=== PATIENT | female | born 1945 | race Caucasian/White ===

== ENCOUNTER 2019-07-31 05:22 | Emergency (ER) | payer OTHER, MEDICAID ==
[2019-07-31] MEDS ORDERED: SODIUM CHLORIDE 0.9% (FLUSH) 10 ML SYG IV PRN (05:38)
[2019-07-31] MEDS: IPRATROPIUM/ALBUTEROL 3 ML VIAL INH ONE (05:50)
--- NOTE | 2019-07-31 06:03 | ED.PDOC ---
History of Present Illness - General Source: patient, RN notes reviewed, Vital Signs reviewed - History of Present Illness Comments: 74 yo female with PMH of CHF, CKD, dementia, HTN, CAD, and COPD presents from OR for 1 week h/o nonproductive cough, congestion and feeling short of breath. She is not on oxygen at OR. Denies fever, chills, CP or leg edema. States cough is worse with lying flat and exertion. Has not seen her doctor or taken any medications for these symptoms. Per OR records, she takes Lasix 20 mg daily prn edema. - General Chief Complaint: Respiratory Problem Stated Complaint: trouble breathing, cough, congestion Time Seen by Provider: 07/31/19 05:34 - History of Present Illness Allergies/Adverse Reactions: Allergies Latex Allergy (Verified 07/31/19 05:47) Pantoprazole [From Protonix] Allergy (Verified 07/31/19 05:47) Penicillins Allergy (Verified 07/31/19 05:42) Pneumococcal Vaccines Allergy (Verified 07/31/19 05:47) Sulfa Antibiotics Allergy (Verified 07/31/19 05:47) Milk Allergy (Uncoded 07/31/19 05:47) Home Medications: Ambulatory Orders Albuterol Inhaler [Ventolin Hfa Inhaler] 2 puff INH Q6H PRN #1 inh 07/31/19 Albuterol Sulfate [Ventolin Hfa] 2 puff INH Q6H PRN 07/31/19 Aspirin [Aspirin Adult Low Dose] 81 mg PO DAILY 07/31/19 Azithromycin [Zithromax Z-Thomas] 250 mg PO DAILY #6 tab 07/31/19 Benzonatate 100 mg PO Q8H PRN 07/31/19 Adajjxofgx-Oaknatxqxltzu-Snqfk [Butalbital/Acetaminophen/] 1 cap PO Q12H PRN 07/31/19 Carvedilol 6.25 mg PO BID 07/31/19 Clopidogrel Bisulfate 75 mg PO DAILY 07/31/19 Cranberry (Vaccinium Macrocarp [Cranberry] 400 mg PO DAILY 07/31/19 Duloxetine HCl 60 mg PO BEDTIME 07/31/19 Fluticasone Prop 0.05% Nasal [Flonase Nasal Michael] 50 mcg ALTNOS DAILY 07/31/19 Furosemide 20 mg PO DAILY 07/31/19 Ibuprofen 800 mg PO Q6H PRN 07/31/19 Insulin Detemir [Levemir] 50 unit SUBCU BEDTIME 07/31/19 Insulin Lispro [HumaLOG] 0 unit SUBCU ACHS PRN 07/31/19 Insulin Lispro [HumaLOG] 7 unit SUBCU AC 07/31/19 Lactobacillus [Acidophilus Lactobacilli] 1 cap PO DAILY 07/31/19 Levothyroxine Sodium 75 mcg PO DAILY 07/31/19 Mesalamine [Lialda] 1.2 gm PO TID 07/31/19 Montelukast [Singulair] 10 mg PO BEDTIME 07/31/19 Nitroglycerin Patch 0.4 mg/Hr [Nitro-Dur PATCH 0.4 mg/hour] 0.4 mg TOP QD 07/31/19 Ondansetron [Ondansetron Odt] 4 mg PO DAILY 07/31/19 Oxybutynin Chloride [Oxybutynin Chloride ER] 5 mg PO DAILY 07/31/19 Polyethylene Glycol 3350 [Miralax] 17 gm PO DAILY 07/31/19 Prednisone 60 mg PO DAILY 5 Days #15 tab 07/31/19 Pregabalin [Lyrica] 300 mg PO BID 07/31/19 Promethazine HCl 25 mg PO Q6H PRN 07/31/19 Ranitidine HCl 150 mg PO DAILY 07/31/19 Ropinirole Hydrochloride [Ropinirole HCl] 0.25 mg PO TID 07/31/19 Sennosides [Senna Laxative] 8.6 mg PO BID PRN 07/31/19 Simvastatin 10 mg PO BEDTIME 07/31/19 Topiramate 100 mg PO BID 07/31/19 Past Medical History (General) - Patient Medical History Hx Stroke: Yes Hx of COPD: Yes Hx Congestive Heart Failure: Yes Hx Thyroid Disease: Yes Hx Diabetes: Yes Hx Gastroesophageal Reflux: Yes Surgical History: appendectomy, cholecystectomy, Hysterectomy - Vaccination History Hx Tetanus, Diphtheria Vaccination: No Hx Influenza Vaccination: Yes Hx Pneumococcal Vaccination: No - allergic - Social History Hx Tobacco Use: No Hx Alcohol Use: No - Activities of Daily Living Alf/Assisted Living (if applicable):: [facility] Family Medical History - Family History Mother Family History: Unknown Hx Family Cancer: Yes Physical Exam - Physical Exam General Appearance: Alert, Anxious, No apparent distress, Well Groomed, Other - Nontoxic appearing ENT Exam: other - TTP bilateral maxillary sinuses. Oropharynx has mild erythema, no edema or exudates Neck: non-tender, full range of motion, supple, normal inspection, trachea midline Respiratory: chest non-tender - Good air movement with bibasilar crackles and occasional wheezing, no accessory muscle use Cardiovascular/Chest: normal peripheral pulses, regular rate, rhythm, no JVD, other - No pitting edema Gastrointestinal/Abdominal: non tender, soft, other - ND, no guarding Extremity: normal range of motion, non-tender, normal inspection, no pedal edema, no calf tenderness Neurologic: no motor/sensory deficits, alert, other - anxious Skin Exam: normal color, warm/dry Progress - Progress Progress: 07/31/19 06:23 EKG NSR, rate 62, normal intervals, nonspecific T wave abnormality 07/31/19 07:00 Pt presents with 1 week h/o cough and dyspnea. VSS. No hypoxia or respiratory distress. Has wheezes on exam that have improved with neb. CXR shows atelectasis vs early pneumonia. Mild leukocytosis, afebrile. Other labs unremarkable. Flu negative. Pt feels comfortable going home on treatment for COPD exacerbation and will f/u with pcp in 1-2 days for recheck. 07/31/19 07:04 - Results/Orders Results/Orders: Chest single view on 07/31/2019 CLINICAL INDICATION: Cough COMPARISON: 01/26/2012 FINDINGS: There is elevation of the right hemidiaphragm. There are mild bibasilar opacities consistent with atelectasis and/or pneumonia. Vascular calcification is noted in the aorta. Heart is within normal limits for size. Lungs are otherwise clear. IMPRESSION: Mild bibasilar opacities consistent with atelectasis and/or pneumonia. Departure - Departure Activity: increase activity as tolerated - Departure Clinical Impression: COPD exacerbation, Essential hypertension Dyspnea Qualifiers: Dyspnea type: shortness of breath Qualified Code(s): R06.02 - Shortness of breath Disposition: Discharge to Home or Self Care Condition: Good Departure Forms: ED Discharge - Pt. Copy, Patient Portal Self Enrollment Instructions: COPD Including Emphysema (DC) Referrals: SANAZ KERR [Primary Care Provider] - 1-2 Days Prescriptions: Albuterol Inhaler [Ventolin Hfa Inhaler] 2 puff INH Q6H PRN #1 inh PRN Reason: Wheezing Azithromycin [Zithromax Z-Thomas] 250 mg PO DAILY #6 tab Prednisone 60 mg PO DAILY 5 Days #15 tab Home Medications: Ambulatory Orders Albuterol Inhaler [Ventolin Hfa Inhaler] 2 puff INH Q6H PRN #1 inh 07/31/19 Albuterol Sulfate [Ventolin Hfa] 2 puff INH Q6H PRN 07/31/19 Aspirin [Aspirin Adult Low Dose] 81 mg PO DAILY 07/31/19 Azithromycin [Zithromax Z-Thomas] 250 mg PO DAILY #6 tab 07/31/19 Benzonatate 100 mg PO Q8H PRN 07/31/19 Rcgaxmgwxv-Lhyhrrnjxmxjz-Jfjom [Butalbital/Acetaminophen/] 1 cap PO Q12H PRN 07/31/19 Carvedilol 6.25 mg PO BID 07/31/19 Clopidogrel Bisulfate 75 mg PO DAILY 07/31/19 Cranberry (Vaccinium Macrocarp [Cranberry] 400 mg PO DAILY 07/31/19 Duloxetine HCl 60 mg PO BEDTIME 07/31/19 Fluticasone Prop 0.05% Nasal [Flonase Nasal Michael] 50 mcg ALTNOS DAILY 07/31/19 Furosemide 20 mg PO DAILY 07/31/19 Ibuprofen 800 mg PO Q6H PRN 07/31/19 Insulin Detemir [Levemir] 50 unit SUBCU BEDTIME 07/31/19 Insulin Lispro [HumaLOG] 0 unit SUBCU ACHS PRN 07/31/19 Insulin Lispro [HumaLOG] 7 unit SUBCU AC 07/31/19 Lactobacillus [Acidophilus Lactobacilli] 1 cap PO DAILY 07/31/19 Levothyroxine Sodium 75 mcg PO DAILY 07/31/19 Mesalamine [Lialda] 1.2 gm PO TID 07/31/19 Montelukast [Singulair] 10 mg PO BEDTIME 07/31/19 Nitroglycerin Patch 0.4 mg/Hr [Nitro-Dur PATCH 0.4 mg/hour] 0.4 mg TOP QD 07/31/19 Ondansetron [Ondansetron Odt] 4 mg PO DAILY 07/31/19 Oxybutynin Chloride [Oxybutynin Chloride ER] 5 mg PO DAILY 07/31/19 Polyethylene Glycol 3350 [Miralax] 17 gm PO DAILY 07/31/19 Prednisone 60 mg PO DAILY 5 Days #15 tab 07/31/19 Pregabalin [Lyrica] 300 mg PO BID 07/31/19 Promethazine HCl 25 mg PO Q6H PRN 07/31/19 Ranitidine HCl 150 mg PO DAILY 07/31/19 Ropinirole Hydrochloride [Ropinirole HCl] 0.25 mg PO TID 07/31/19 Sennosides [Senna Laxative] 8.6 mg PO BID PRN 07/31/19 Simvastatin 10 mg PO BEDTIME 07/31/19 Topiramate 100 mg PO BID 07/31/19 Addendum entered and electronically signed by Rohan Jones MD 08/10/19 18:15: ED Addendum - ED Addendum Addendum: Review of systems: Reports cough, congestion, SOB Denies fever, CP, body aches, easy bruising, headache, abdominal pain, nausea, vomiting, constipation Departure - Departure Clinical Impression: COPD exacerbation, Essential hypertension Dyspnea Qualifiers: Dyspnea type: shortness of breath Qualified Code(s): R06.02 - Shortness of breath Disposition: Discharge to Home or Self Care Condition: Good Departure Forms: ED Discharge - Pt. Copy, Patient Portal Self Enrollment Instructions: COPD Including Emphysema (DC) Referrals: SANAZ KERR [Primary Care Provider] - 1-2 Days Prescriptions: Albuterol Inhaler [Ventolin Hfa Inhaler] 2 puff INH Q6H PRN #1 inh PRN Reason: Wheezing Azithromycin [Zithromax Z-Thomas] 250 mg PO DAILY #6 tab Prednisone 60 mg PO DAILY 5 Days #15 tab Home Medications: Ambulatory Orders Albuterol Inhaler [Ventolin Hfa Inhaler] 2 puff INH Q6H PRN #1 inh 07/31/19 Albuterol Sulfate [Ventolin Hfa] 2 puff INH Q6H PRN 07/31/19 Aspirin [Aspirin Adult Low Dose] 81 mg PO DAILY 07/31/19 Azithromycin [Zithromax Z-Thomas] 250 mg PO DAILY #6 tab 07/31/19 Benzonatate 100 mg PO Q8H PRN 07/31/19 Plhogenmeq-Kilzrhcttsgkt-Ayhrp [Butalbital/Acetaminophen/] 1 cap PO Q12H PRN 07/31/19 Carvedilol 6.25 mg PO BID 07/31/19 Clopidogrel Bisulfate 75 mg PO DAILY 07/31/19 Cranberry (Vaccinium Macrocarp [Cranberry] 400 mg PO DAILY 07/31/19 Duloxetine HCl 60 mg PO BEDTIME 07/31/19 Fluticasone Prop 0.05% Nasal [Flonase Nasal Michael] 50 mcg ALTNOS DAILY 07/31/19 Furosemide 20 mg PO DAILY 07/31/19 Ibuprofen 800 mg PO Q6H PRN 07/31/19 Insulin Detemir [Levemir] 50 unit SUBCU BEDTIME 07/31/19 Insulin Lispro [HumaLOG] 0 unit SUBCU ACHS PRN 07/31/19 Insulin Lispro [HumaLOG] 7 unit SUBCU AC 07/31/19 Lactobacillus [Acidophilus Lactobacilli] 1 cap PO DAILY 07/31/19 Levothyroxine Sodium 75 mcg PO DAILY 07/31/19 Mesalamine [Lialda] 1.2 gm PO TID 07/31/19 Montelukast [Singulair] 10 mg PO BEDTIME 07/31/19 Nitroglycerin Patch 0.4 mg/Hr [Nitro-Dur PATCH 0.4 mg/hour] 0.4 mg TOP QD Ondansetron [Ondansetron Odt] 4 mg PO DAILY 07/31/19 Oxybutynin Chloride [Oxybutynin Chloride ER] 5 mg PO DAILY 07/31/19 Polyethylene Glycol 3350 [Miralax] 17 gm PO DAILY 07/31/19 Prednisone 60 mg PO DAILY 5 Days #15 tab 07/31/19 Pregabalin [Lyrica] 300 mg PO BID 07/31/19 Promethazine HCl 25 mg PO Q6H PRN 07/31/19 Ranitidine HCl 150 mg PO DAILY 07/31/19 Ropinirole Hydrochloride [Ropinirole HCl] 0.25 mg PO TID 07/31/19 Sennosides [Senna Laxative] 8.6 mg PO BID PRN 07/31/19 Simvastatin 10 mg PO BEDTIME 07/31/19 Topiramate 100 mg PO BID 07/31/19
--- NOTE | 2019-07-31 06:51 | RAD ---
Chest single view on 07/31/2019 CLINICAL INDICATION: Cough COMPARISON: 01/26/2012 FINDINGS: There is elevation of the right hemidiaphragm. There are mild bibasilar opacities consistent with atelectasis and/or pneumonia. Vascular calcification is noted in the aorta. Heart is within normal limits for size. Lungs are otherwise clear. IMPRESSION: Mild bibasilar opacities consistent with atelectasis and/or pneumonia. Electronically signed by: Ryan Galvez 07/31/2019 6:49 AM CDT
[2019-07-31] MEDS: AZITHROMYCIN 250 MG TAB PO ONE (07:12)
[2019-07-31] MEDS: AZITHROMYCIN IV 500 MG in SODIUM CHLORIDE 0.9% 250ML 250 ML IVPB ONE (07:23)
[2019-07-31 07:50] VITALS: BP 132/82; TEMP 97.1; O2SAT 96
== END 2019-07-31 08:00 | disposition home or self-care (01) ==
LOC: ER 05:22
DX: J44.1 Chronic obstructive pulmonary disease with (acute) exacerbation (principal); I13.0 Hypertensive heart and chronic kidney disease with heart failure and stage 1 through stage 4 chronic kidney disease, or unspecified chronic kidney disease; I50.9 Heart failure, unspecified; N18.9 Chronic kidney disease, unspecified; E11.22 Type 2 diabetes mellitus with diabetic chronic kidney disease; I25.10 Atherosclerotic heart disease of native coronary artery without angina pectoris; E07.9 Disorder of thyroid, unspecified; K21.9 Gastro-esophageal reflux disease without esophagitis; F03.90 Unspecified dementia, unspecified severity, without behavioral disturbance, psychotic disturbance, mood disturbance, and anxiety; Z86.73 Personal history of transient ischemic attack (TIA), and cerebral infarction without residual deficits; Z79.899 Other long term (current) drug therapy; Z79.82 Long term (current) use of aspirin; Z79.4 Long term (current) use of insulin; Z91.040 Latex allergy status; Z88.8 Allergy status to other drugs, medicaments and biological substances; Z88.0 Allergy status to penicillin; Z88.2 Allergy status to sulfonamides; Z88.7 Allergy status to serum and vaccine
CPT/HCPCS: 36415; 71045; 80053; 83605; 83880; 84484; 85025; 87502; 93005; 94640; J7620; Q0144

== ENCOUNTER 2019-09-21 16:52 | Observation (INO) | payer MEDICARE, MEDICAID ==
--- NOTE | 2019-09-21 16:54 | HP ---
SUPERVISING PHYSICIAN: Meng Hudson MD CHIEF COMPLAINT: Coughing and congestion. HISTORY OF PRESENT ILLNESS: This is a 74-year-old female the patient who is a resident of [facility]. She has had a cough and upper respiratory infection symptoms over the last week. It progressed to the point that she came to Dr. Elizabeth's office today. She is actually a fairly new patient with Dr. Elizabeth. At the doctor's office, a chest x-ray was done and showed large heart without failure and medial right basilar infiltrate or partial volume loss. Her white count was 14,500 with hemoglobin 13.2 and hematocrit 40. She was somewhat tachypneic and there was a question of whether she had an elevated temperature or not. She has a significant cardiac history as well as chronic obstructive pulmonary disease. Given her elevated white count as well as her elevated heart rate of 95 and findings on x-ray, Dr. Elizabeth called for a direct admission. PAST MEDICAL HISTORY: 1. Congestive heart failure of unknown etiology. There is no current echocardiogram to review. 2. Diabetes mellitus, type 2. 3. Neuropathy due to her diabetes. 4. Hyperlipidemia. 5. Hypertension. 6. Chronic obstructive pulmonary disease. 7. Gastroesophageal reflux disease. 8. Ulcerative colitis. 9. Dementia. 10. Depression. PAST SURGICAL HISTORY: 1. Abdominal surgery for polyps. 2. Tonsillectomy. 3. Cholecystectomy. 4. Hysterectomy. 5. Lumpectomy of the posterior tongue. OUTPATIENT MEDICATIONS: Per the EMR and awaiting verification. ALLERGIES: LATEX, PENICILLIN, PNEUMOCOCCAL VACCINE, SULFA ANTIBIOTICS. SOCIAL HISTORY: She lives at [facility]. She denies any tobacco, ETOH or illicit drug use. REVIEW OF SYSTEMS: GENERAL: Positive for fever and fatigue. Negative for weight changes. HEENT: Negative for sinus symptoms, ear pain, vision changes or sore throat. RESPIRATORY: As per history of present illness. CARDIAC: Negative for chest pain, palpitations or tachycardia. GASTROINTESTINAL: Negative for nausea, vomiting, diarrhea, constipation. GENITOURINARY: Negative for hematuria, dysuria or polyuria. SKIN: Negative for lesions or rashes. NEUROLOGIC: Negative for headache, dizziness or seizures. PHYSICAL EXAMINATION: VITAL SIGNS: Temperature 98.4. Heart rate 85. Blood pressure 156/71. Respiratory rate 18. O2 saturation 94% on room air. GENERAL: This is a 74-year-old obese female who is sitting up in her hospital bed. She is in mild respiratory distress. HEENT: Normocephalic, atraumatic. Pupils are equal and reactive. Oropharynx is clear. NECK: Supple without mass. RESPIRATORY: Diminished at the bases with a few scattered rhonchi. She becomes slightly tachypneic at times. CHEST: There is equal rise and fall of the chest with inspiration and expiration. CARDIOVASCULAR: Regular rate and rhythm. GASTROINTESTINAL: Abdomen is soft, nondistended, nontender. Bowel sounds are positive. EXTREMITIES: No cyanosis, clubbing or edema. NEUROLOGIC: Awake, alert and oriented times three. Cranial nerves II-XII are grossly intact. LABORATORY: Coagulation studies are within normal limits. Her metabolic panel is within normal limits. Glucose 210. Blood cultures pending. All other labs and films are per the history of present illness. IMPRESSION: 1. Sepsis related to right lower lobe pneumonia with admitting heart rate of 95 and WBC of 14,500. 2. Congestive heart failure of unknown etiology with no evidence of exacerbation. 3. Diabetes mellitus, type 2. 4. Hypertension. 5. Hyperlipidemia. 6. Hypothyroidism on supplementation. 7. Chronic obstructive pulmonary disease with questionable exacerbation. 8. Gastroesophageal reflux disease. PLAN: The patient has been admitted to the hospital. I have started the pneumonia guidelines. I will continue her on Rocephin. I will order Rocephin and azithromycin. At this point, I do not think she needs steroids, but we will reevaluate that tomorrow. Labs have been ordered for tomorrow. I will recheck her chest x-ray tomorrow. We will follow her cultures as they become available. I have also ordered a sputum culture. Medications will be restarted when they are verified. I have ordered aggressive pulmonary hygiene including scheduled and p.r.n. nebulizers. Lovenox has been ordered for DVT prophylaxis and proton pump inhibitor for ulcer prophylaxis. At some point, she will need an echocardiogram as we have no current echocardiogram to review. We will continue to monitor the patient closely and follow as needed. [facility][id number] [facility]
[2019-09-21] MEDS ORDERED: ALBUTEROL SULFATE 2.5 MG/3 ML VIAL NEB PRN (16:55)
[2019-09-21] MEDS ORDERED: ACETAMINOPHEN 325 MG TAB PO PRN (16:55)
[2019-09-21] MEDS ORDERED: SODIUM CHLORIDE 0.9% 1000ML 1,000 ML IVS PRN (16:55)
[2019-09-21] MEDS ORDERED: SODIUM CHLORIDE 0.9% (FLUSH) 10 ML SYG IV PRN (16:55)
[2019-09-21] MEDS ORDERED: IV SET AND CAP CHANGE INJ INJ SCH (17:00)
[2019-09-21] MEDS ORDERED: GLUCAGON INJ 1 MG VIAL SUBCU PRN (17:02)
[2019-09-21] MEDS ORDERED: DEXTROSE 50% 25 GM/50 ML SYG IV PRN (17:02)
[2019-09-21] MEDS ORDERED: ONDANSETRON INJ 4 MG/2 ML VIAL IV PRN (17:07)
[2019-09-21] MEDS: IPRATROPIUM/ALBUTEROL 3 ML VIAL NEB SCH ×2 (17:59→21:32)
[2019-09-21] MEDS ORDERED: SODIUM CHL 0.9% 50ML MIN-BAG+ 50 ML IVPB ONE (18:58)
[2019-09-21] MEDS ORDERED: SODIUM CHLORIDE 0.9% 250ML 250 ML ONE (18:58)
[2019-09-21] MEDS ORDERED: cefTRIAXone SODIUM 1 GM VIAL ONE (18:59)
[2019-09-21] MEDS ORDERED: AZITHROMYCIN IV 500 MG VIAL IVPB ONE (18:59)
[2019-09-21] MEDS: cefTRIAXone SODIUM 1 GM in SODIUM CHL 0.9% 50ML MIN-BAG+ 50 ML IVPB SCH (19:36)
[2019-09-21] MEDS: AZITHROMYCIN IV 500 MG in SODIUM CHLORIDE 0.9% 250ML 250 ML IVPB SCH (20:33)
[2019-09-21] MEDS: ENOXAPARIN SODIUM 40 MG/0.4 ML SYG SUBCU SCH (20:33)
[2019-09-21] MEDS: SODIUM CHLORIDE 0.9% (FLUSH) 10 ML SYG IV SCH (20:44)
[2019-09-21] MEDS: INSULIN LISPRO 100 UNITS/ML PEN SUBCU SCH (21:17)
[2019-09-21] MEDS ORDERED: SODIUM CHLORIDE 0.9% 1000ML 1,000 ML ONE (21:25)
[2019-09-21] MEDS ORDERED: ACETAMINOPHEN-CAFF-BUTALBITAL 1 EA TAB PO PRN (23:47)
--- NOTE | 2019-09-22 07:36 | RAD ---
EXAM DESCRIPTION: Chest,2 Views CLINICAL HISTORY: Pneumonia COMPARISON: July 31, 2019 TECHNIQUE: PA/lateral FINDINGS: Two views of the chest demonstrate tortuous calcified aorta and mild chronic elevation of the right hemidiaphragm. Mild basilar fibrotic lung disease is evident. Dense lobar segmental consolidation is not apparent. Slightly crowded markings in the medial right lung base are likely on the basis of the elevated diaphragm. Minimal basilar bronchopneumonia cannot be excluded. Dense lobar consolidation is not apparent. Heart size is upper normal with normal vascularity. IMPRESSION: Mild basilar fibrotic lung disease and slightly crowded are prominent markings in the medial right lung base suggesting mild scarring or compressive atelectasis or minimal bronchopneumonia. Calcified tortuous aorta with upper normal heart and normal vascularity. No dense consolidation seen. Electronically signed by: Meng Pace MD 09/22/2019 7:34 AM [employer]
[2019-09-22] MEDS: INSULIN LISPRO 100 UNITS/ML PEN SUBCU SCH ×5 (07:49→20:56)
[2019-09-22] MEDS ORDERED: BENZONATATE PERLES 100 MG CAP PO PRN (08:24)
[2019-09-22] MEDS ORDERED: BENZOCAINE-MENTH LOZ (CEPACOL) 1 EA LOZ MT PRN (08:24)
[2019-09-22] MEDS ORDERED: IPRATROPIUM/ALBUTEROL 3 ML VIAL NEB ONE (08:37)
[2019-09-22] MEDS: IPRATROPIUM/ALBUTEROL 3 ML VIAL NEB SCH ×4 (08:55→20:57)
[2019-09-22] MEDS ORDERED: DEXTROSE 10% 500ML IVPB PRN (09:00)
[2019-09-22] MEDS ORDERED: tiZANidine 4 MG TAB PO PRN (09:16)
[2019-09-22] MEDS ORDERED: FUROSEMIDE INJ 20 MG/2 ML VIAL IV ONE (09:20)
[2019-09-22] MEDS ORDERED: NON-FORMULARY MEDICATION 1 EA MIS (Pregabalin [Lyrica] 300 MG) PO SCH (09:30)
[2019-09-22] MEDS: guaiFENesin ER TAB 600 MG TAB PO SCH ×2 (09:39→20:34)
[2019-09-22] MEDS ORDERED: PREGABALIN 100 MG CAP ONE (09:39)
[2019-09-22] MEDS: CLOPIDOGREL 75 MG TAB PO SCH (09:40)
[2019-09-22] MEDS: CARVEDILOL 3.125 MG TAB PO SCH ×2 (09:40→20:35)
[2019-09-22] MEDS: SODIUM CHLORIDE 0.9% (FLUSH) 10 ML SYG IV SCH ×2 (09:41→20:35)
[2019-09-22] MEDS: NITROGLYCERIN 0.4 MG/HR PATCH TOP SCH (09:41)
[2019-09-22] MEDS: POLYETHYLENE GLYCOL 3350 17 GM PCKT PO SCH (09:45)
[2019-09-22] MEDS ORDERED: methylPREDNISolone SODIUM SUC 125 MG/2 ML VIAL IV ONE (09:45)
--- NOTE | 2019-09-22 10:29 | PN ---
SUPERVISING PHYSICIAN: Meng Hudson MD DATE: 09/22/19 SUBJECTIVE: The patient is lying in bed. She still complains of some shortness of breath and coughing. She is having a difficult time bringing any phlegm up. She also said she had some diarrhea although it was reported from the nurse that it was just a soft stool. Otherwise, she denies chest pain, nausea or vomiting. OBJECTIVE: VITAL SIGNS: Temperature 98.3. Heart rate 62. Blood pressure 129/67. Respiratory rate 20. O2 saturation 92% on 2 liters nasal cannula. RESPIRATORY: Scattered rhonchi throughout and somewhat diminished at the bases. She does get slightly tachypneic with talking. She does have some scattered expiratory wheezes in the right lower lung javier. CARDIAC: Regular rate and rhythm. GASTROINTESTINAL: Abdomen is soft, nondistended, nontender. Bowel sounds are positive. NEUROLOGIC: Awake, alert and oriented times three. LABORATORY: WBCs have improved to 13,300 with hemoglobin 11.3, hematocrit 34.9. Electrolytes are basically within normal limits as well as liver function tests. Blood sugar 254. Blood cultures pending. Chest x-ray shows mild basilar fibrotic lung disease and slightly crowded. There are prominent markings in the medial right lung base suggesting mild scarring or compressive atelectasis or minimal bronchopneumonia. Calcified tortuous aorta with upper normal heart and normal vascularity. All other labs and films have been reviewed via the EMR. ASSESSMENT: 1. Sepsis related to right lower lobe pneumonia with admitting heart rate of 95 and WBC of 14,500. 2. Congestive heart failure of unknown etiology with no evidence of exacerbation. 3. Diabetes mellitus, type 2. 4. Hypertension. 5. Hyperlipidemia. 6. Hypothyroidism on supplementation. 7. Chronic obstructive pulmonary disease with questionable exacerbation. 8. Gastroesophageal reflux disease. PLAN: We will continue present supportive care. I will hold on lab and x-ray for tomorrow. Her IV fluids have been stopped. She will receive one dose of Lasix today. Her home medications have been restarted and I have put her on Tessalon Perles p.r.n. as well as Mucinex scheduled. I have given her one dose of Solu-Medrol and her blood sugars will most likely go up. We have sliding scale insulin coverage for that. Her home long-acting insulin has been restarted. Continue to encourage good pulmonary hygiene. Hopefully we can discharge her in the next one to days. We will continue to monitor the patient closely and follow as needed. [facility][id number] [facility]
[2019-09-22] MEDS ORDERED: methylPREDNISolone SODIUM SUC 125 MG/2 ML VIAL ONE (11:54)
[2019-09-22] MEDS: LACTOBACILLUS 1 TAB PO SCH ×2 (16:02→20:36)
[2019-09-22] MEDS: MESALAMINE 1.2 GM PO SCH ×2 (17:02→20:41)
[2019-09-22] MEDS ORDERED: SODIUM CHLORIDE 0.9% 250ML 250 ML ONE (17:04)
[2019-09-22] MEDS ORDERED: SODIUM CHL 0.9% 50ML MIN-BAG+ 50 ML IVPB ONE (17:05)
[2019-09-22] MEDS ORDERED: cefTRIAXone SODIUM 1 GM VIAL ONE (17:05)
[2019-09-22] MEDS ORDERED: AZITHROMYCIN IV 500 MG VIAL IVPB ONE (17:05)
[2019-09-22] MEDS: cefTRIAXone SODIUM 1 GM in SODIUM CHL 0.9% 50ML MIN-BAG+ 50 ML IVPB SCH (17:09)
[2019-09-22] MEDS: AZITHROMYCIN IV 500 MG in SODIUM CHLORIDE 0.9% 250ML 250 ML IVPB SCH (17:59)
[2019-09-22] MEDS: PREGABALIN 100 MG CAP PO SCH (20:34)
[2019-09-22] MEDS: TOPIRAMATE 25 MG TAB PO SCH (20:35)
[2019-09-22] MEDS: SENNOSIDES 8.6 MG TAB PO SCH (20:35)
[2019-09-22] MEDS: ENOXAPARIN SODIUM 40 MG/0.4 ML SYG SUBCU SCH (20:36)
[2019-09-22] MEDS ORDERED: DULoxetine HCL 30 MG CAP PO SCH (21:00)
[2019-09-22] MEDS ORDERED: MONTELUKAST 10 MG TAB PO SCH (21:00)
[2019-09-22] MEDS ORDERED: SIMVASTATIN 10 MG TAB PO SCH (21:00)
[2019-09-22] MEDS ORDERED: INSULIN DETEMIR 100 UNITS/ML PEN SUBCU SCH (21:00)
[2019-09-23] MEDS ORDERED: LEVOTHYROXINE SODIUM 0.075 MG TAB ONE (06:50)
[2019-09-23] MEDS ORDERED: OXYBUTYNIN CL 5 MG TAB ONE (06:50)
[2019-09-23] MEDS ORDERED: ASPIRIN (ENTERIC COATED) 81 MG TAB PO ONE (06:50)
[2019-09-23] MEDS: INSULIN LISPRO 100 UNITS/ML PEN SUBCU SCH ×2 (07:29→12:07)
[2019-09-23] MEDS: IPRATROPIUM/ALBUTEROL 3 ML VIAL NEB SCH (07:54)
[2019-09-23] MEDS ORDERED: ASPIRIN (ENTERIC COATED) 81 MG TAB PO SCH (09:00)
[2019-09-23] MEDS ORDERED: OXYBUTYNIN CL 5 MG TAB PO SCH (09:00)
[2019-09-23] MEDS: PREGABALIN 100 MG CAP PO SCH (09:18)
[2019-09-23] MEDS: TOPIRAMATE 25 MG TAB PO SCH (09:19)
[2019-09-23] MEDS: LACTOBACILLUS 1 TAB PO SCH (09:20)
[2019-09-23] MEDS: guaiFENesin ER TAB 600 MG TAB PO SCH (09:20)
[2019-09-23] MEDS: SENNOSIDES 8.6 MG TAB PO SCH (09:20)
[2019-09-23] MEDS: CARVEDILOL 3.125 MG TAB PO SCH (09:21)
[2019-09-23] MEDS: SODIUM CHLORIDE 0.9% (FLUSH) 10 ML SYG IV SCH (09:22)
[2019-09-23] MEDS: CLOPIDOGREL 75 MG TAB PO SCH (09:22)
[2019-09-23] MEDS: POLYETHYLENE GLYCOL 3350 17 GM PCKT PO SCH (09:23)
[2019-09-23] MEDS: NITROGLYCERIN 0.4 MG/HR PATCH TOP SCH (09:29)
[2019-09-23] MEDS: MESALAMINE 1.2 GM PO SCH (09:29)
[2019-09-23] MEDS ORDERED: LEVOTHYROXINE SODIUM 0.075 MG TAB PO SCH (09:45)
[2019-09-23 10:13] VITALS: BP 132/81; TEMP 98; O2SAT 96
--- NOTE | 2019-09-24 11:52 | DS ---
SUPERVISING PHYSICIAN: Meng Hudson MD DISCHARGE DIAGNOSES: 1. Sepsis related to right lower lobe pneumonia with admitting heart rate of 95 and WBC of 14,500. 2. Congestive heart failure of unknown etiology with no evidence of exacerbation. 3. Diabetes mellitus, type 2. 4. Hypertension. 5. Hyperlipidemia. 6. Hypothyroidism on supplementation. 7. Chronic obstructive pulmonary disease with questionable exacerbation. 8. Gastroesophageal reflux disease. HISTORY OF PRESENT ILLNESS: This is a 74-year-old female patient who is a resident of [facility]. She has had a cough and upper respiratory infection symptoms that have been going on for over a week. It progressively worsened to the point that she went to see her primary care physician, Dr. Elizabeth. She is actually a new patient to him. At his office, a chest x-ray was done and showed enlarged heart without failure and medial right basilar infiltrate or partial volume loss. Her white count was 14,500 with hemoglobin 13.2 and hematocrit 40. She was somewhat tachypneic and there was a question of whether she had an elevated temperature or not. She has a significant cardiac history as well as chronic obstructive pulmonary disease and her elevated white count as well as her elevated heart rate and findings on x-ray, Dr. Elizabeth called for a direct admission. HOSPITAL COURSE: She was placed in observation in the hospital. Pneumonia guidelines were started. She was also put on Rocephin and azithromycin as well as antibiotics. Initially, she was not given any steroids but yesterday she was actually given one dose. Her labs were followed and a sputum culture was ordered as well as blood cultures, aggressive pulmonary hygiene including scheduled p.r.n. breathing treatments were also ordered. She got Lovenox for DVT prophylaxis. She did have a dry hacking cough and was given Mucinex, also Tessalon Perles. Her coughing improved as well as her other upper respiratory symptoms. Her medications were restarted. She initially reported some diarrhea but the nurses reported the stool was not liquid as it was very formed and she only had two of those. Her long-acting insulin was restarted as well as blood sugar checks a.c. and h.s. with NovoLog insulin coverage. Today, her vital signs are stable. Her upper respiratory symptoms are mostly resolved and she will return to the [facility] today with close followup with Dr. Elizabeth next week. LABORATORY: Her initial white count at the clinic was 14,500 and went down to 13,300 and it was up to 16,500 today but she did have one dose of steroids. Her hemoglobin and hematocrit were stable at 12.2 and 36.9. Her blood sugars ran between 150 and 325. Her metabolic panel was basically within normal limits. She had stool for occult blood that was negative. Preliminary blood cultures showed no growth after 24 hours. Her C. difficile was negative for both toxin and antigen and fecal WBCs were present. Her followup chest x-ray showed mild basilar fibrotic lung disease and slightly crowded are the prominent markings in the medial right lung base suggesting mild scarring or compression atelectasis or minimal bronchopneumonia, calcified tortuous aorta with upper normal heat and normal vascularity. No dense consolidation seen. All other labs and films have been reviewed via the EMR. DISCHARGE PLAN: The patient will be discharged to [facility] in stable condition. She will continue her previous home medications plus oral azithromycin and oral Cefdinir. I have also given her 14 additional days of Mucinex in addition to the Mucinex she takes at the [facility]. She is to resume her previous her diet, increase her activity as tolerated as well as have a proximity consultation. I have also ordered her some albuterol nebs and she has a followup appointment with Dr. Elizabeth on 09/29/19 at 2:00 P.M. It is recommended she have a chest x-ray done at that time. She is to return to the hospital or call Dr. Elizabeth's office for any problems or complications. It is also recommended that she have an echocardiogram done as we have no current echocardiogram to review. DISCHARGE MEDICATIONS: 1. Topiramate. 2. Simvastatin. 3. Singulair. 4. Senna laxative. 5. Oxybutynin. 6. Requip. 7. Promethazine. 8. Zofran. 9. Miralax. 10. Treatment patch. 11. Lyrica. 12. Mesalamine. 13. Levothyroxine. 14. Levemir. 15. Furosemide. 16. Fluticasone nasal. 17. Duloxetine. 18. Cranberry. 19. Carvedilol. 20. Butalbital/acetaminophen/caffeine. 21. Benzonatate. 22. Aspirin. 23. Lactobacillus. 24. Zanaflex. 25. Nexium. 26. Azithromycin. 27. Cefdinir. 28. Guaifenesin. [facility][id number] [facility]
== END 2019-09-23 13:32 ==
LOC: MS 16:52 → INTOOBSV 16:52
PROVIDERS: ADMIT Family Medicine; ATTEND Nurse Practitioner Acute Care
DX: A41.9 Sepsis, unspecified organism (principal); J18.1 Lobar pneumonia, unspecified organism; I11.0 Hypertensive heart disease with heart failure; I50.9 Heart failure, unspecified; E11.65 Type 2 diabetes mellitus with hyperglycemia; E78.5 Hyperlipidemia, unspecified; E03.9 Hypothyroidism, unspecified; J44.9 Chronic obstructive pulmonary disease, unspecified; K21.9 Gastro-esophageal reflux disease without esophagitis; E11.42 Type 2 diabetes mellitus with diabetic polyneuropathy; F03.90 Unspecified dementia, unspecified severity, without behavioral disturbance, psychotic disturbance, mood disturbance, and anxiety; F32.9 Major depressive disorder, single episode, unspecified; I70.0 Atherosclerosis of aorta; Z79.4 Long term (current) use of insulin; Z79.82 Long term (current) use of aspirin; Z79.890 Hormone replacement therapy; Z79.899 Other long term (current) drug therapy; Z88.0 Allergy status to penicillin; Z88.2 Allergy status to sulfonamides; Z88.7 Allergy status to serum and vaccine; Z91.040 Latex allergy status; Z90.49 Acquired absence of other specified parts of digestive tract; Z90.710 Acquired absence of both cervix and uterus
CPT/HCPCS: 96366; 96367; 96365; 96375; 96376; 96372 ×2; J7611; J0696 ×2; J1940; J2930; J7030; J7050 ×4; J1650 ×2; J0456 ×2; J7620 ×5; J1815 ×2; 82270; 80053 ×2; 82948 ×7; 36415 ×4; 85025 ×2; 87040; 87045; 87046; 85730; 85610; 36416 ×5; 87324; 83630; 71046; 94640 ×8; 94760 ×3; G0378; 87449

== ENCOUNTER → 2020-03-01 | Outpatient (CLI) | payer OTHER, MEDICAID | LOC: GOCC 12:59 | PROVIDERS: ATTEND Family Medicine | DX: N39.0 Urinary tract infection, site not specified (principal) ==

== ENCOUNTER 2020-04-24 15:24 | Inpatient (IN) | payer OTHER, MEDICAID ==
[2020-04-24] MEDS ORDERED: SODIUM CHLORIDE 0.9% (FLUSH) 10 ML SYG IV PRN (15:27)
--- NOTE | 2020-04-24 15:28 | ED.PDOC ---
History of Present Illness - General Time Seen by Provider: 04/24/20 15:26 Source: patient, EMS, detention records - History of Present Illness Initial Comments: 74-year-old female with PMH of COPD who is brought in by EMS from [facility] for chief complaint of shortness of breath and low oxygen sats and confusion. Patient is unsure why she is here. Her chief complaint is shortness of breath, moderate severity, constant, worse with exertion, improved with supplemental oxygen. She was tested several days ago for COVID-19 and her test returned positive last night. It has been going around the detention. She is unsure when her shortness of breath began. She does report intermittent chronic dry cough which is largely unchanged from usual. Denies any fevers, chills, chest pain, abdominal pain, nausea, vomiting, diarrhea, dysuria/hematuria, leg swelling, sore throat. The detention reported that she became more short of breath this afternoon and her oxygen saturation dropped to 77% on room air. EMS reported low 80s% on room air on their arrival which improved to 96% with 4 L by nasal cannula oxygen. Allergies/Adverse Reactions: Allergies Latex Allergy (Verified 07/31/19 05:47) Pantoprazole [From Protonix] Allergy (Verified 07/31/19 05:47) Penicillins Allergy (Verified 07/31/19 05:42) Pneumococcal Vaccines Allergy (Verified 07/31/19 05:47) Sulfa Antibiotics Allergy (Verified 07/31/19 05:47) Milk Allergy (Uncoded 07/31/19 05:47) Home Medications: Ambulatory Orders Aspirin [Aspirin Adult Low Dose] 81 mg PO DAILY 07/31/19 Benzonatate 100 mg PO Q8H PRN 07/31/19 Guokmdtmvf-Pixtrlslplvod-Issrm [Butalbital/Acetaminophen/ 50-325-40 mg] 1 cap PO Q12H PRN 07/31/19 Carvedilol 6.25 mg PO BID 07/31/19 Clopidogrel Bisulfate 75 mg PO DAILY 07/31/19 Cranberry (Vaccinium Macrocarp [Cranberry] 450 mg PO DAILY 07/31/19 Duloxetine HCl 60 mg PO BEDTIME 07/31/19 Fluticasone Prop 0.05% Nasal [Flonase Nasal [place]] 50 mcg ALTNOS DAILY 07/31/19 Furosemide 20 mg PO DAILY PRN 07/31/19 Ibuprofen 800 mg PO Q6H PRN 07/31/19 Insulin Lispro [Humalog] 0 unit SUBCU ACHS PRN 07/31/19 Levothyroxine Sodium 75 mcg PO 0630 07/31/19 Mesalamine [Lialda] 1.2 gm PO TID 07/31/19 Montelukast [Singulair] 10 mg PO BEDTIME 07/31/19 Nitroglycerin Patch 0.4 mg/Hr [Nitro-Dur PATCH 0.4 mg/hour] 0.4 mg TOP QD 07/31/19 Ondansetron [Ondansetron Odt] 4 mg PO Q8H PRN 07/31/19 Oxybutynin Chloride [Oxybutynin Chloride ER] 5 mg PO DAILY 07/31/19 Polyethylene Glycol 3350 [Miralax] 17 gm PO DAILY 07/31/19 Pregabalin [Lyrica] 300 mg PO BID 07/31/19 Promethazine HCl 25 mg PO Q6H PRN 07/31/19 Ropinirole Hydrochloride 0.25 mg PO TID 07/31/19 Sennosides [Senna Laxative] 8.6 mg PO BID 07/31/19 Simvastatin 10 mg PO BEDTIME 07/31/19 Topiramate 100 mg PO BID 07/31/19 Esomeprazole Magnesium [Nexium 24Hr] 40 mg PO DAILY 09/21/19 Lactobacillus [Acidophilus Lactobacilli] 1 cap PO TID 09/21/19 tiZANidine [Zanaflex] 4 mg PO Q8H PRN 09/21/19 Albuterol Sulfate Nebs [Proventil Nebs] 2.5 mg NEB BID #100 vial 09/23/19 Azithromycin Tab [Zithromax Tab] 250 mg PO DAILY #3 tab 09/23/19 Cefdinir 300 mg PO BID #14 capsule 09/23/19 Guaifenesin [Mucinex] 600 mg PO BID #28 tab 09/23/19 Insulin Detemir [Levemir] 54 unit SUBCU BEDTIME #1 vial 09/23/19 Review of Systems - Review of Systems Review of Systems: 04/24/20 15:45 as per HPI All other Systems: Reviewed and Negative Past Medical History (General) - Patient Medical History Hx Seizures: No Hx Stroke: No Hx Dementia: Yes Hx Asthma: No Hx of COPD: Yes Hx Cardiac Disorders: Yes - high cholesterol Hx Congestive Heart Failure: Yes Hx Pacemaker: No Hx Hypertension: Yes Hx Thyroid Disease: Yes Hx Diabetes: Yes Hx Gastroesophageal Reflux: Yes Hx MRSA: No - Vaccination History Hx Tetanus, Diphtheria Vaccination: No Hx Influenza Vaccination: Yes Hx Pneumococcal Vaccination: No - allergic - Social History Hx Tobacco Use: No Hx Alcohol Use: No Hx Substance Use: No Hx Depression: Yes Hx Physical Abuse: No Hx Emotional Abuse: No Family Medical History - Family History Mother Family History: Unknown Hx Family Cancer: Yes Physical Exam - Physical Exam General Appearance: Alert, Comfortable, No apparent distress Eye Exam: bilateral normal Ears, Nose, Throat: hearing grossly normal, normal ENT inspection, normal pharynx Neck: full range of motion, supple, normal inspection Respiratory: chest non-tender, no respiratory distress, rales - BL rales to mid lung javier, worse at lung bases, other - no wheezing, slightly increased respiratory effort, speaking in full sentences comfortably Cardiovascular/Chest: normal peripheral pulses, regular rate, rhythm, no edema, no gallop, no murmur Peripheral Pulses: radial,right: 2+, radial,left: 2+ Gastrointestinal/Abdominal: normal bowel sounds, non tender, soft, no organomegaly Back Exam: normal inspection, no CVA tenderness, no vertebral tenderness Extremity: normal range of motion, non-tender, normal inspection, no pedal edema, no calf tenderness, normal capillary refill 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 Not oriented to date. Skin Exam: normal color, warm/dry Progress - Progress Progress: 04/24/20 15:47 Dyspnea, confusion -Suspect due to COVID-19, hypoxia. Consider also sepsis, pneumonia, UTI, electrolyte derangement, other. -SpO2 noted 86% on RA on arrival here - improves to >90% on 2 L NC, vitals otherwise stable, pt NAD -Obtain chest x-ray, blood work, cardiac work-up, blood cultures 04/24/20 18:27 -All labs and imaging reviewed. Chest x-ray reveals right perihilar infiltrate per my read. Labs reveal WBC 10,000. D-dimer was elevated so CTA chest was obtained which revealed findings consistent with COVID-19 pneumonia. Patient remained stable, continues to need supplemental nasal cannula oxygen. -Patient has been accepted by Dr. Hudson for admission for COVID-19 pneumonia and acute hypoxia Jovani Jensen MD Billing #[id number] 04/24/20 15:27 IV Care:Saline Lock per Protoc QSHIFT Telemetry .ONCE Sodium Chloride 0.9% (Flush) [Saline Flush Syringe] 10 ml IV PRN PRN URINALYSIS Stat 04/24/20 15:30 EKG STAT 04/24/20 18:18 Azithromycin IV [Zithromax IV] 500 mg Sodium Chloride 0.9% 250Ml [NS 250ml] 250 ml IVPB ONCE cefTRIAXone SODIUM [Rocephin] 1 gm Sodium Chl 0.9% 50Ml Min-Bag+ [NS 50ml MINI-BAG+] 50 ml IVPB ONCE 04/25/20 09:00 Pulse Ox Daily Laboratory Results - last 24 hr 04/24/20 04/24/20 04/24/20 15:48 16:30 16:30 WBC 10.2 RBC 4.21 Hgb 12.4 Hct 36.6 MCV 86.8 MCH 29.6 MCHC 34.0 RDW 13.6 Plt Count 213 MPV 8.3 Absolute Neuts (auto) 8.30 H Absolute Lymphs (auto) 1.10 Absolute Monos (auto) 0.60 Absolute Eos (auto) 0.00 Absolute Basos (auto) 0.10 Neutrophils % 82.0 H Lymphocytes % 10.7 L Monocytes % 6.2 Eosinophils % 0.4 L Basophils % 0.7 D-Dimer, Quantitative 2230.0 H* Sodium 131 L Potassium 3.2 L Chloride 100 L Carbon Dioxide 20 L Anion Gap 14.2 BUN 20 H Creatinine 0.91 BUN/Creatinine Ratio 22.0 H Random Glucose 109 H Serum Osmolality 265.9 L Lactic Acid Calcium 8.4 Total Bilirubin 0.7 AST 38 ALT 21 Alkaline Phosphatase 91 Troponin I B-Natriuretic Peptide 35.8 Serum Total Protein 6.6 Albumin 3.0 L Globulin 3.6 H Albumin/Globulin Ratio 0.8 L 04/24/20 04/24/20 16:30 16:30 WBC RBC Hgb Hct MCV MCH MCHC RDW Plt Count MPV Absolute Neuts (auto) Absolute Lymphs (auto) Absolute Monos (auto) Absolute Eos (auto) Absolute Basos (auto) Neutrophils % Lymphocytes % Monocytes % Eosinophils % Basophils % D-Dimer, Quantitative Sodium Potassium Chloride Carbon Dioxide Anion Gap BUN Creatinine BUN/Creatinine Ratio Random Glucose Serum Osmolality Lactic Acid 0.7 Calcium Total Bilirubin AST ALT Alkaline Phosphatase Troponin I 0.02 B-Natriuretic Peptide Serum Total Protein Albumin Globulin Albumin/Globulin Ratio - EKG/XRAY/CT EKG: Sinus - With incomplete right bundle branch block and left anterior fascicular block, heart rate 70, no ST elevations or Q waves noted, left axis deviation, intervals normal, appears unchanged from 07/31/2019 EKG. Departure - Departure Clinical Impression: COVID-19, Pneumonia due to 2019 novel coronavirus, Hypoxia Time of Disposition: 18:26 Disposition: Admit Patient Condition: Fair Referrals: SANAZ KERR [Primary Care Provider] - 1-2 Weeks Home Medications: Ambulatory Orders Aspirin [Aspirin Adult Low Dose] 81 mg PO DAILY 07/31/19 Benzonatate 100 mg PO Q8H PRN 07/31/19 Zyhaeetypy-Obzicchvumusm-Uaoxi [Butalbital/Acetaminophen/ 50-325-40 mg] 1 cap PO Q12H PRN 07/31/19 Carvedilol 6.25 mg PO BID 07/31/19 Clopidogrel Bisulfate 75 mg PO DAILY 07/31/19 Cranberry (Vaccinium Macrocarp [Cranberry] 450 mg PO DAILY 07/31/19 Duloxetine HCl 60 mg PO BEDTIME 07/31/19 Fluticasone Prop 0.05% Nasal [Flonase Nasal [place]] 50 mcg ALTNOS DAILY 07/31/19 Furosemide 20 mg PO DAILY PRN 07/31/19 Ibuprofen 800 mg PO Q6H PRN 07/31/19 Insulin Lispro [Humalog] 0 unit SUBCU ACHS PRN 07/31/19 Levothyroxine Sodium 75 mcg PO 0630 07/31/19 Mesalamine [Lialda] 1.2 gm PO TID 07/31/19 Montelukast [Singulair] 10 mg PO BEDTIME 07/31/19 Nitroglycerin Patch 0.4 mg/Hr [Nitro-Dur PATCH 0.4 mg/hour] 0.4 mg TOP QD 07/31/19 Ondansetron [Ondansetron Odt] 4 mg PO Q8H PRN 07/31/19 Oxybutynin Chloride [Oxybutynin Chloride ER] 5 mg PO DAILY 07/31/19 Polyethylene Glycol 3350 [Miralax] 17 gm PO DAILY 07/31/19 Pregabalin [Lyrica] 300 mg PO BID 07/31/19 Promethazine HCl 25 mg PO Q6H PRN 07/31/19 Ropinirole Hydrochloride 0.25 mg PO TID 07/31/19 Sennosides [Senna Laxative] 8.6 mg PO BID 07/31/19 Simvastatin 10 mg PO BEDTIME 07/31/19 Topiramate 100 mg PO BID 07/31/19 Esomeprazole Magnesium [Nexium 24Hr] 40 mg PO DAILY 09/21/19 Lactobacillus [Acidophilus Lactobacilli] 1 cap PO TID 09/21/19 tiZANidine [Zanaflex] 4 mg PO Q8H PRN 09/21/19 Albuterol Sulfate Nebs [Proventil Nebs] 2.5 mg NEB BID #100 vial 09/23/19 Azithromycin Tab [Zithromax Tab] 250 mg PO DAILY #3 tab 09/23/19 Cefdinir 300 mg PO BID #14 capsule 09/23/19 Guaifenesin [Mucinex] 600 mg PO BID #28 tab 09/23/19 Insulin Detemir [Levemir] 54 unit SUBCU BEDTIME #1 vial 09/23/19 Decision To Admit - Decistion To Admit Decision to Admit Reason: Admit from ER Decision to Admit Date: 04/24/20 Decision to Admit Time: 18:27
--- NOTE | 2020-04-24 16:13 | RAD ---
EXAM DESCRIPTION: Chest,1 View CLINICAL HISTORY: 74 years Female altered mental status COMPARISON: None TECHNIQUE: AP view of the chest was obtained. FINDINGS: Cardiac silhouette is enlarged. Central vessels are increased and indistinct. Right hilar fullness increased when correlated with the prior study. Patchy airspace opacities bilaterally increased. No effusions bilaterally. No pneumothorax. IMPRESSION: Enlarged heart with marked pulmonary congestion increased when correlated with the prior study. Ill-defined bilateral infiltrates also increased. Electronically signed by: Roxanne Vela MD 04/24/2020 4:11 PM CDT
[2020-04-24] MEDS ORDERED: POTASSIUM CHLORIDE 20 MEQ TAB PO ONE (17:07)
--- NOTE | 2020-04-24 18:14 | CT ---
CT CHEST ANGIOGRAPHY WITH IV CONTRAST HISTORY: Shortness of breath. COMPARISON: None. TECHNIQUE: CT angiogram of the chest with IV contrast. 3-D MIP images were obtained in coronal and sagittal reconstructions. This exam was performed according to our departmental dose-optimization program, which includes automated exposure control, adjustment of the mA and/or kV according to patient size and/or use of iterative reconstruction technique. FINDINGS: No filling defects are identified in the pulmonary trunk, main left and right pulmonary arteries, or the segmental branches. The pulmonary trunk is enlarged measuring 4 cm. The thyroid gland is normal. No mediastinal or hilar adenopathy. The heart size is enlarged without pericardial effusion. The thoracic aorta is normal caliber. There are multiple patchy groundglass opacities scattered throughout both lungs in a predominantly peripheral distribution. No pleural effusions or pneumothorax. The visualized upper abdomen demonstrates no acute findings. No acute osseous findings are seen. IMPRESSION: 1. No acute pulmonary embolism. 2. Commonly reported imaging features of (COVID-19 or viral) pneumonia are present. Other processes such as influenza pneumonia and organizing pneumonia, as can be seen with drug toxicity and connective tissue disease, can cause a similar imaging pattern. [PneTyp] Electronically signed by: Konrad Brantley MD 04/24/2020 6:12 PM CDT
[2020-04-24] MEDS ORDERED: AZITHROMYCIN IV 500 MG in SODIUM CHLORIDE 0.9% 250ML 250 ML IVPB ONE (18:18)
[2020-04-24] MEDS ORDERED: cefTRIAXone SODIUM 1 GM in SODIUM CHL 0.9% 50ML MIN-BAG+ 50 ML IVPB ONE (18:18)
--- NOTE | 2020-04-24 19:47 | HP ---
CHIEF COMPLAINT: Shortness of breath. HISTORY OF PRESENT ILLNESS: This is a 74 year-old patient from the [facility] who has chronic obstructive pulmonary disease and continuing to complain of increasing shortness of breath and notably low oxygen saturations in the 87% range noted by EMS, as well as confusion. The patient became a little less confused with treatments in the Emergency Room, but was still confused initially about why she had come to the Emergency Room. She did say she had really been having a hard time breathing. Notably she had COVID-19 test done several days ago that returned positive last night. This prison has had a number of cases of COVID-19 over the past 2 weeks. The patient really has a hard time reporting to me when her symptoms began, but obviously they began at least several nights ago. She does have a chronic cough but has had slightly worse coughing recently. There have been no reports of fever or chills. She denies any chest pain, abdominal pain, nausea or vomiting. In the prison, her oxygen saturations were actually noted to be 77% on room air. EMS reported low 80s on room air which improved to 96% with 4 liters by nasal cannula. PAST MEDICAL HISTORY: 1. Essential hypertension. 2. Type 2 diabetes mellitus. 3. Coronary artery disease. 4. Chronic obstructive pulmonary disease. 5. Congestive heart failure with no recent echocardiogram. 6. Neuropathy due to her diabetes. 7. Hyperlipidemia. 8. Gastroesophageal reflux disease. 9. Ulcerative colitis. 10. Dementia. 11. Depression. 12. Hypothyroidism. 13. Gastroesophageal reflux disease. PAST SURGICAL HISTORY: 1. Hysterectomy with bilateral salpingo-oophorectomy. 2. Cholecystectomy. 3. Tonsillectomy. 4. Abdominal surgery for polyps. 5. Lumpectomy on the posterior tongue. CURRENT MEDICATIONS: Currently being reconciled between the prison and the hospital. ALLERGIES: LATEX, PENICILLIN, PNEUMOCOCCAL VACCINE AND SULFA ANTIBIOTICS. FAMILY HISTORY: Noncontributory. SOCIAL HISTORY: She lives in the [facility]. She is a . Her 32 years ago with mesothelioma. She does not smoke cigarettes and her did not smoke, but she did grow up in a family where the parents smoked. She does not have any history of alcohol or drug abuse. REVIEW OF SYSTEMS: CONSTITUTIONAL: As mentioned above, there are no reports of any fever or chills. She is weak and fatigued. HEENT: She denies any visual disturbance, hearing loss, sore throat, neck pain or stiffness. CARDIAC: No chest pain. RESPIRATORY: She is short of breath and coughing. GASTROINTESTINAL: No nausea, vomiting, hematemesis, hematochezia, melena, diarrhea or constipation. GENITOURINARY: No dysuria, hematuria or polyuria. MUSCULOSKELETAL: She has diffuse joint aches. SKIN: No lesions or rashes. NEUROLOGIC: She is confused but alert. Apparently this is baseline for her, perhaps slightly more confused than usual. PSYCHIATRIC: Difficult to assess at this point. PHYSICAL EXAMINATION: VITAL SIGNS: Temperature 97.5, pulse 73, blood pressure 157/74, respiratory rate 24, oxygen saturation 94% on 4 liters by nasal cannula. GENERAL: This is an elderly white female. She is in mild distress. HEENT: Normocephalic and atraumatic. Tympanic membranes appear clear. Throat is dry. NECK: Supple. CHEST: Has rales diffusely, diminished sounds throughout. CARDIOVASCULAR: Heart has a regular rate and rhythm. ABDOMEN: Soft, non-tender. Nondistended. Bowel sounds are positive. There is no rebound or guarding. EXTREMITIES: Have no clubbing, cyanosis or edema. SKIN: Has no lesions or rashes. NEUROLOGIC: She is alert to person and place. Somewhat confused but she does give a fairly accurate history. LABORATORY: White blood cell count is 10.2, hemoglobin 12.4, hematocrit 36.6, platelet count 213, lymphocyte percent is 10.7, D-dimer 2,230. Chemistry shows a white blood cell count of 131, potassium 3.2, chloride 100, CO2 is 20, BUN 20, creatinine 0.9, lactic acid 0.7, calcium 8.4, AST is 38, ALT is 21, troponin 0.02. CT scan: 1. No acute pulmonary embolism. 2. Commonly reported imaging features of COVID or viral pneumonia. ASSESSMENT: 1. COVID-19 pneumonia. 2. Chronic obstructive pulmonary disease with exacerbation. 3. History of congestive heart failure with last echocardiogram unavailable and unknown ejection fraction and also unknown systolic or diastolic type. 4. Type 2 diabetes mellitus. 5. Hypertension. 6. Hypothyroidism. 7. Gastroesophageal reflux disease. DISCUSSION AND PLAN: The patient will be admitted to the hospital on the COVID- 19 wing. She will be started on routine COVID protocol, including Dexamethasone 6 mg IV daily. She will be anticoagulated with Lovenox 1 mg per kg given twice daily. She will be started on IV antibiotics as well with Zithromax and Rocephin. We will give her frequent nebulizer treatments and will resume her home medications from the prison as well. She will be kept in the prone position as much as possible. She will be left on oxygen. #[id number] [facility]
[2020-04-24] MEDS ORDERED: ALBUTEROL SULFATE 2.5 MG/3 ML VIAL NEB PRN (20:25)
[2020-04-24] MEDS ORDERED: AZITHROMYCIN IV 500 MG in SODIUM CHLORIDE 0.9% 250ML 250 ML IVPB SCH (20:30)
[2020-04-24] MEDS ORDERED: cefTRIAXone SODIUM 1 GM in SODIUM CHL 0.9% 50ML MIN-BAG+ 50 ML IVPB SCH (20:30)
[2020-04-24] MEDS ORDERED: DEXAMETHASONE INJ 4 MG/ML VIAL IV SCH ×2 (22:02→22:04)
[2020-04-24] MEDS ORDERED: PREGABALIN 100 MG CAP ONE (22:30)
[2020-04-24] MEDS ORDERED: DEXAMETHASONE INJ 10 MG/ML VIAL ONE (22:30)
[2020-04-24] MEDS ORDERED: CARVEDILOL 12.5 MG TAB ONE (22:30)
[2020-04-24] MEDS ORDERED: TOPIRAMATE 25 MG TAB ONE (22:31)
[2020-04-24] MEDS: ENOXAPARIN SODIUM 80 MG/0.8 ML SYG SUBCU SCH (22:35)
[2020-04-24] MEDS: NON-FORMULARY MEDICATION 1 EA MIS (Pregabalin [Lyrica] 300 MG) PO SCH (22:35)
[2020-04-24] MEDS: guaiFENesin ER TAB 600 MG TAB PO SCH (22:35)
[2020-04-24] MEDS: KCL 20 MEQ/NS 1,000 ML IVS PRN (22:36)
[2020-04-24] MEDS: NON-FORMULARY MEDICATION 1 EA MIS (Carvedilol [Carvedilol] 6.25 MG) PO SCH (22:37)
[2020-04-24] MEDS: TOPIRAMATE 100 MG PO SCH (22:37)
[2020-04-24] MEDS ORDERED: GLUCAGON INJ 1 MG VIAL SUBCU PRN (23:17)
[2020-04-24] MEDS ORDERED: DEXTROSE 50% 25 GM/50 ML SYG IV PRN (23:17)
[2020-04-25] MEDS: guaiFENesin ER TAB 600 MG TAB PO SCH ×3 (05:55→21:30)
[2020-04-25] MEDS: LEVOTHYROXINE SODIUM 0.075 MG TAB PO SCH (05:55)
[2020-04-25] MEDS ORDERED: ZINC 50 MG CAPSULE ONE (08:41)
[2020-04-25] MEDS ORDERED: PREGABALIN 100 MG CAP ONE (08:42)
[2020-04-25] MEDS ORDERED: CARVEDILOL 12.5 MG TAB ONE (08:42)
[2020-04-25] MEDS ORDERED: TOPIRAMATE 25 MG TAB ONE (08:42)
[2020-04-25] MEDS ORDERED: DEXAMETHASONE INJ 4 MG/ML VIAL IV SCH (09:00)
[2020-04-25] MEDS ORDERED: ZINC 50 MG PO SCH (09:00)
[2020-04-25] MEDS: MESALAMINE 1.2 GM PO SCH ×3 (09:45→20:22)
[2020-04-25] MEDS: PREGABALIN 100 MG CAP PO SCH ×2 (09:48→20:20)
[2020-04-25] MEDS: CARVEDILOL 12.5 MG TAB PO SCH ×2 (09:48→20:20)
[2020-04-25] MEDS: CLOPIDOGREL 75 MG TAB PO SCH (09:48)
[2020-04-25] MEDS: TOPIRAMATE 25 MG TAB PO SCH ×2 (09:48→20:19)
[2020-04-25] MEDS: ASCORBIC ACID 500 MG TAB PO SCH ×2 (09:48→20:20)
[2020-04-25] MEDS: NITROGLYCERIN 0.4 MG/HR PATCH TOP SCH ×2 (09:49)
[2020-04-25] MEDS: ENOXAPARIN SODIUM 80 MG/0.8 ML SYG SUBCU SCH ×2 (09:49→20:25)
[2020-04-25] MEDS: NON-FORMULARY MEDICATION 1 EA MIS (Carvedilol [Carvedilol] 6.25 MG) PO SCH (09:51)
[2020-04-25] MEDS: TOPIRAMATE 100 MG PO SCH (09:51)
[2020-04-25] MEDS: NON-FORMULARY MEDICATION 1 EA MIS (Pregabalin [Lyrica] 300 MG) PO SCH (09:51)
[2020-04-25] MEDS: IPRATROPIUM/ALBUTEROL 3 ML VIAL NEB SCH ×3 (12:15→20:30)
[2020-04-25] MEDS: KCL 20 MEQ/NS 1,000 ML IVS PRN (19:04)
[2020-04-25] MEDS ORDERED: ALUM & MAG HYDROX-SIMETHICONE 30 ML UD ONE (20:07)
[2020-04-25] MEDS: cefTRIAXone SODIUM 1 GM in SODIUM CHL 0.9% 50ML MIN-BAG+ 50 ML IVPB SCH (20:19)
[2020-04-25] MEDS: MONTELUKAST 10 MG TAB PO SCH (20:19)
[2020-04-25] MEDS: SIMVASTATIN 10 MG TAB PO SCH (20:20)
[2020-04-25] MEDS: DULoxetine HCL 30 MG CAP PO SCH (20:20)
[2020-04-25] MEDS: DEXAMETHASONE INJ 4 MG/ML VIAL IV SCH (20:21)
[2020-04-25] MEDS ORDERED: INSULIN DETEMIR 50 UNIT SUBCU SCH (21:00)
[2020-04-25] MEDS ORDERED: NON-FORMULARY MEDICATION 1 EA MIS (Duloxetine Hcl [Duloxetine Hcl] 60 MG) PO SCH (21:00)
[2020-04-25] MEDS: AZITHROMYCIN IV 500 MG in SODIUM CHLORIDE 0.9% 250ML 250 ML IVPB SCH (21:30)
[2020-04-25] MEDS: INSULIN DETEMIR 100 UNITS/ML PEN SUBCU SCH (22:00)
[2020-04-26] MEDS: guaiFENesin ER TAB 600 MG TAB PO SCH ×3 (05:43→21:03)
[2020-04-26] MEDS: LEVOTHYROXINE SODIUM 0.075 MG TAB PO SCH (05:43)
--- NOTE | 2020-04-26 07:12 | RAD ---
EXAM: X-RAY, Chest (1 View) HISTORY: Covid pneumonia. COMPARISON: Chest x-ray from 04/24/2020. TECHNIQUE: AP view of the chest. FINDINGS: Lungs: Stable interstitial opacities in both lungs and mild hazy airspace opacities in the right upper lobe and left lung base. Pleural space: No pneumothorax or pleural effusion is present. Heart: The heart is normal in size. Bones: No acute bone abnormality. IMPRESSION: Stable exam with scattered interstitial and airspace opacities. Electronically signed by: Satinder Hammer MD 04/26/2020 7:10 AM CDT
[2020-04-26] MEDS: ENOXAPARIN SODIUM 80 MG/0.8 ML SYG SUBCU SCH ×2 (07:58→20:23)
--- NOTE | 2020-04-26 08:08 | PN ---
SUPERVISING PHYSICIAN: Milton Dawson MD DATE: 04/25/20 SUBJECTIVE: The patient is lying in bed. She is in no acute distress. She does feel somewhat better than yesterday, but continues to have some shortness of breath. She is still slightly confused, but most likely at baseline. OBJECTIVE: VITAL SIGNS: Temperature 98, heart rate 67, blood pressure 137/79, respiratory rate 18, O2 saturation 96% on 2 liters nasal cannula. RESPIRATORY: Diminished breath sounds throughout with a few scattered rhonchi. CARDIAC: Regular rate and rhythm. GASTROINTESTINAL: Abdomen is soft, nondistended, nontender. Bowel sounds are positive. NEUROLOGIC: She is alert to person and place. She does get slightly confused at times, but does answer most simple yes/no questions appropriately. LABORATORY: CBC is unremarkable. D-dimer has improved to 1020. Electrolytes are basically within normal limits. C-reactive protein is 18.6. Preliminary blood cultures show no growth. C. difficile is negative for antigen and toxin. All other labs and films have been reviewed via the EMR. ASSESSMENT: 1. COVID-19 pneumonia. 2. Chronic obstructive pulmonary disease with exacerbation. 3. History of congestive heart failure of unknown etiology and her echocardiogram is unavailable at this time. 4. Type 2 diabetes mellitus. 5. Hypertension. 6. Hypothyroidism. 7. Gastroesophageal reflux disease. PLAN: We will continue present supportive care. We will repeat her labs in the morning. She will continue on her steroids, breathing treatments, Lovenox and her antibiotics. I have ordered labs for in the morning and hopefully she can be discharged in the next one to two days without any problems. We will continue to monitor the patient closely and follow as needed. [id number]
[2020-04-26] MEDS: CLOPIDOGREL 75 MG TAB PO SCH (09:18)
[2020-04-26] MEDS: ASCORBIC ACID 500 MG TAB PO SCH ×2 (09:18→20:53)
[2020-04-26] MEDS: ACETAMINOPHEN 325 MG TAB PO PRN ×3 (09:18→20:00)
[2020-04-26] MEDS: NITROGLYCERIN 0.4 MG/HR PATCH TOP SCH (09:20)
[2020-04-26] MEDS: CARVEDILOL 12.5 MG TAB PO SCH ×2 (09:20→20:57)
[2020-04-26] MEDS: PREGABALIN 100 MG CAP PO SCH ×2 (09:20→20:51)
[2020-04-26] MEDS: TOPIRAMATE 25 MG TAB PO SCH ×2 (09:21→20:52)
[2020-04-26] MEDS: ZINC 50 MG CAPSULE PO SCH (09:21)
[2020-04-26] MEDS: IPRATROPIUM/ALBUTEROL 3 ML VIAL NEB SCH ×4 (09:45→20:15)
[2020-04-26] MEDS: MESALAMINE 1.2 GM PO SCH ×3 (09:57→20:55)
[2020-04-26] MEDS: BENZONATATE PERLES 100 MG CAP PO PRN ×2 (10:49→20:24)
[2020-04-26] MEDS: ONDANSETRON INJ 4 MG/2 ML VIAL IV PRN (10:52)
[2020-04-26] MEDS ORDERED: IPRATROPIUM/ALBUTEROL 3 ML VIAL NEB ONE (13:05)
[2020-04-26] MEDS: KCL 20 MEQ/NS 1,000 ML IVS PRN (17:30)
--- NOTE | 2020-04-26 18:10 | PN ---
SUPERVISING PHYSICIAN: Milton Dawson M.D. DATE: 04/26/20 SUBJECTIVE: The patient is sitting up in bed. Earlier she had told nursing that she had an ear ache and a sore throat, but at this time she has no complaints. She has no complaints of an ear ache. She does say that she feels like she had some drainage in her throat. OBJECTIVE: VITAL SIGNS: Temperature 97.2, heart rate 62, blood pressure 146/52, respiratory rate 22 to 24, O2 saturation is 94% on 2 liters nasal cannula. RESPIRATORY: Somewhat diminished at the bases with scattered rhonchi throughout. She does get tachypneic with speaking more than 2 to 3 word phrases. She also gets tachypneic with some mild exertion. GASTROINTESTINAL: Abdomen is soft, nondistended, non-tender. Bowel sounds are positive. NEUROLOGIC: She is awake, alert and oriented times three. LABORATORY: We were unable to get lab today other than her glucose was 97 to 153. Strep test was negative. Preliminary blood cultures show no growth after 24 hours. Chest x-ray shows stable exam with scattered interstitial and airspace opacities. All other labs and films have been reviewed via the EMR. ASSESSMENT: 1. COVID-19 pneumonia. 2. Chronic obstructive pulmonary disease with exacerbation. 3. History of congestive heart failure of unknown etiology and her echocardiogram is unavailable at this time. 4. Type 2 diabetes mellitus. 5. Hypertension. 6. Hypothyroidism. 7. Gastroesophageal reflux disease. PLAN: We will continue present supportive care. Because Lab was unable to draw her blood this morning, will repeat it in the morning. Will hold on her chest x-ray as she is clinically improving. She most likely will need to go home on oxygen as at this time her oxygen saturations do drop into the mid 80s with any type of exertion as well as conversation, even with oxygen in place. Will monitor cultures as they become available. Will follow and treat as needed. #[id number] [facility]
[2020-04-26] MEDS: cefTRIAXone SODIUM 1 GM in SODIUM CHL 0.9% 50ML MIN-BAG+ 50 ML IVPB SCH (20:23)
[2020-04-26] MEDS: tiZANidine 4 MG TAB PO PRN (20:24)
[2020-04-26] MEDS: DEXAMETHASONE INJ 4 MG/ML VIAL IV SCH (20:50)
[2020-04-26] MEDS: DULoxetine HCL 30 MG CAP PO SCH (20:53)
[2020-04-26] MEDS: SIMVASTATIN 10 MG TAB PO SCH (20:54)
[2020-04-26] MEDS: MONTELUKAST 10 MG TAB PO SCH (20:55)
[2020-04-26] MEDS: AZITHROMYCIN IV 500 MG in SODIUM CHLORIDE 0.9% 250ML 250 ML IVPB SCH (20:55)
[2020-04-26] MEDS: INSULIN LISPRO 100 UNITS/ML PEN SUBCU SCH (20:57)
[2020-04-26] MEDS ORDERED: INSULIN DETEMIR 100 UNITS/ML PEN SUBCU ONE (21:14)
[2020-04-26] MEDS: INSULIN DETEMIR 100 UNITS/ML PEN SUBCU SCH (21:16)
[2020-04-27] MEDS: BENZONATATE PERLES 100 MG CAP PO PRN ×3 (03:57→20:47)
[2020-04-27] MEDS: LEVOTHYROXINE SODIUM 0.075 MG TAB PO SCH (06:04)
[2020-04-27] MEDS: guaiFENesin ER TAB 600 MG TAB PO SCH ×3 (06:04→21:10)
[2020-04-27] MEDS: INSULIN LISPRO 100 UNITS/ML PEN SUBCU SCH ×4 (07:49→21:07)
[2020-04-27] MEDS: ENOXAPARIN SODIUM 80 MG/0.8 ML SYG SUBCU SCH ×2 (08:29→20:38)
[2020-04-27] MEDS: PREGABALIN 100 MG CAP PO SCH ×2 (08:30→20:46)
[2020-04-27] MEDS: ZINC 50 MG CAPSULE PO SCH (08:31)
[2020-04-27] MEDS: CARVEDILOL 12.5 MG TAB PO SCH ×2 (08:31→21:04)
[2020-04-27] MEDS: ACETAMINOPHEN 325 MG TAB PO PRN (08:32)
[2020-04-27] MEDS: NITROGLYCERIN 0.4 MG/HR PATCH TOP SCH (08:32)
[2020-04-27] MEDS: ASCORBIC ACID 500 MG TAB PO SCH ×2 (08:32→20:44)
[2020-04-27] MEDS: CLOPIDOGREL 75 MG TAB PO SCH (08:32)
[2020-04-27] MEDS: TOPIRAMATE 25 MG TAB PO SCH ×2 (08:32→20:43)
[2020-04-27] MEDS: IPRATROPIUM/ALBUTEROL 3 ML VIAL NEB SCH ×4 (08:50→20:00)
[2020-04-27] MEDS: MESALAMINE 1.2 GM PO SCH ×3 (09:31→20:46)
[2020-04-27] MEDS: IBUPROFEN 400 MG TAB PO PRN ×2 (12:58→20:47)
[2020-04-27] MEDS: tiZANidine 4 MG TAB PO PRN (16:06)
[2020-04-27] MEDS: SIMVASTATIN 10 MG TAB PO SCH (20:43)
[2020-04-27] MEDS: DULoxetine HCL 30 MG CAP PO SCH (20:43)
[2020-04-27] MEDS: MONTELUKAST 10 MG TAB PO SCH (20:44)
[2020-04-27] MEDS: DEXAMETHASONE INJ 4 MG/ML VIAL IV SCH (20:44)
[2020-04-27] MEDS: cefTRIAXone SODIUM 1 GM in SODIUM CHL 0.9% 50ML MIN-BAG+ 50 ML IVPB SCH (21:04)
[2020-04-27] MEDS: INSULIN DETEMIR 100 UNITS/ML PEN SUBCU SCH ×2 (21:32→21:34)
[2020-04-27] MEDS: AZITHROMYCIN IV 500 MG in SODIUM CHLORIDE 0.9% 250ML 250 ML IVPB SCH (21:32)
[2020-04-28] MEDS: ACETAMINOPHEN 325 MG TAB PO PRN ×2 (03:03→22:21)
[2020-04-28] MEDS: guaiFENesin ER TAB 600 MG TAB PO SCH ×3 (06:28→22:20)
[2020-04-28] MEDS: LEVOTHYROXINE SODIUM 0.075 MG TAB PO SCH (06:28)
[2020-04-28] MEDS: INSULIN LISPRO 100 UNITS/ML PEN SUBCU SCH ×4 (07:00→21:16)
[2020-04-28] MEDS: IPRATROPIUM/ALBUTEROL 3 ML VIAL NEB SCH ×4 (08:00→19:52)
[2020-04-28] MEDS: TOPIRAMATE 25 MG TAB PO SCH ×2 (08:21→20:31)
[2020-04-28] MEDS: CLOPIDOGREL 75 MG TAB PO SCH (08:21)
[2020-04-28] MEDS: CARVEDILOL 12.5 MG TAB PO SCH ×2 (08:21→20:32)
[2020-04-28] MEDS: NITROGLYCERIN 0.4 MG/HR PATCH TOP SCH (08:21)
[2020-04-28] MEDS: ASCORBIC ACID 500 MG TAB PO SCH ×2 (08:21→20:32)
[2020-04-28] MEDS: ZINC 50 MG CAPSULE PO SCH (08:22)
[2020-04-28] MEDS: ENOXAPARIN SODIUM 80 MG/0.8 ML SYG SUBCU SCH ×2 (08:22→20:30)
[2020-04-28] MEDS: PREGABALIN 100 MG CAP PO SCH ×2 (08:22→20:31)
--- NOTE | 2020-04-28 08:38 | PN ---
SUPERVISING PHYSICIAN: Milton Dawson M.D. DATE: 04/27/20 SUBJECTIVE: The patient still complains of shortness of breath. She has refused her DuoNeb treatments today. I explained to her that we will change it to Xopenex and maybe she will tolerate her treatments better. She denies chest pain, nausea or vomiting. OBJECTIVE: VITAL SIGNS: Temperature 97.7, heart rate 63, blood pressure 171/75, respiratory rate 22, O2 saturation is 94% on 2 liters nasal cannula. RESPIRATORY: Diminished breath sounds throughout but mostly clear to auscultation in the upper lobes. CARDIAC: Recovery Room. NEUROLOGIC: She is awake, alert and oriented times three. LABORATORY: WBC 7.4, hemoglobin 11.6, hematocrit 35, D-dimer has normalized to 215. Fibrinogen is 829 with PTT of 35.7. Electrolytes are basically was negative with the exception of calcium is slightly low at 8.2. C-reactive protein has improved to 9.8. Preliminary blood cultures show no growth after 3 days.. All other labs and films have been reviewed via the EMR. ASSESSMENT: 1. COVID-19 pneumonia. 2. Chronic obstructive pulmonary disease with exacerbation. 3. History of congestive heart failure of unknown etiology and her echocardiogram is unavailable at this time. 4. Type 2 diabetes mellitus. 5. Hypertension. 6. Hypothyroidism. 7. Gastroesophageal reflux disease. PLAN: We will continue present supportive care. I have ordered routine labs plus LDH, CRP and a fibrinogen for tomorrow. She has improved steadily and she may be able to be discharged in the next 48 hours. Will continue aggressive pulmonary hygiene. I have changed breathing treatments from Duoneb to Xopenex, maybe she will tolerate those better. We will continue to monitor closely and follow as needed. #[id number] [facility]
[2020-04-28] MEDS: IBUPROFEN 400 MG TAB PO PRN (08:58)
[2020-04-28] MEDS: tiZANidine 4 MG TAB PO PRN (08:59)
[2020-04-28] MEDS: MESALAMINE 1.2 GM PO SCH ×3 (09:42→20:46)
[2020-04-28] MEDS ORDERED: LOPERAMIDE CAP 2 MG CAP ONE (12:45)
[2020-04-28] MEDS: BENZONATATE PERLES 100 MG CAP PO PRN (19:48)
[2020-04-28] MEDS: cefTRIAXone SODIUM 1 GM in SODIUM CHL 0.9% 50ML MIN-BAG+ 50 ML IVPB SCH (20:27)
[2020-04-28] MEDS: DULoxetine HCL 30 MG CAP PO SCH (20:32)
[2020-04-28] MEDS: MONTELUKAST 10 MG TAB PO SCH (20:32)
[2020-04-28] MEDS: SIMVASTATIN 10 MG TAB PO SCH (20:32)
[2020-04-28] MEDS: DEXAMETHASONE INJ 4 MG/ML VIAL IV SCH (20:46)
[2020-04-28] MEDS: INSULIN DETEMIR 100 UNITS/ML PEN SUBCU SCH (20:59)
--- NOTE | 2020-04-28 21:56 | PN ---
SUPERVISING PHYSICIAN: Milton Dawson M.D. DATE: 04/28/20 SUBJECTIVE: The patient is still having a little bit of shortness of breath. She said she feels about the same today. She is still having some diarrhea. She has not had any abdominal pains. No chest pains and no nausea or vomiting. OBJECTIVE: VITAL SIGNS: Temperature 98.2, pulse 62, blood pressure 167/84, respirations 20, satting 97% on 1 liter nasal cannula. GENERAL: The patient is resting comfortably. Does not appear to be in any distress. She is alert. CHEST: Lung sounds remain diminished towards the bases but fairly clear otherwise. HEART: Regular rate and rhythm. ABDOMEN: Soft, non-tender. Positive bowel sounds. NEUROLOGIC: She is alert and oriented times three. LABORATORY: CBC is showing to be within normal limits with a left shift. Review of her labs yesterday did show that she had a PT of 35.7 with fibrinogen of 829, D-dimer was normal. Chemistries today showed CO2 was a little low at 18, otherwise electrolytes were within normal limits. Creatinine was at 0.65. Blood sugars ranged between 197 up to 210. Liver functions were all within normal limits. LDH is a little elevated at 284 compared to yesterday at 227. RADIOLOGY: No additional radiographic studies today. ASSESSMENT: 1. COVID-19 pneumonitis. 2. Chronic obstructive pulmonary disease exacerbated by #1. 3. History of congestive heart failure with unknown etiology. No echocardiogram available at this time of review showing no signs of exacerbation. 4. Diarrhea likely associated with #1 with C-difficile being negative. 5. Type 2 diabetes mellitus. 6. Hypertension. 7. Hypothyroidism. 8. Gastroesophageal reflux disease. PLAN: Will go ahead and continue with current plan of care at this point with azithromycin and Rocephin, Decadron, Lovenox at 80 every 12 hours. She is on sliding scale for her blood sugars per protocol. She is on a proton pump inhibitor for gastric protection. Will continue with breathing treatments. Will go ahead and give her Imodium once a day to see if that helps her diarrhea and start her on a probiotic. Anticipate at least another 24 to 48 hours as long as her numbers continue to show a decrease fairly steady and she remains clinically improved. I anticipate she will probable be able to discharge maybe by Thursday. Until then will continue to monitor and treat as needed. #[id number] [facility]
[2020-04-28] MEDS: AZITHROMYCIN IV 500 MG in SODIUM CHLORIDE 0.9% 250ML 250 ML IVPB SCH (22:20)
[2020-04-28] MEDS: ONDANSETRON INJ 4 MG/2 ML VIAL IV PRN (22:20)
[2020-04-28] MEDS: TEMAZEPAM 15 MG CAP PO PRN (22:23)
[2020-04-29] MEDS: LEVOTHYROXINE SODIUM 0.075 MG TAB PO SCH (06:32)
[2020-04-29] MEDS: guaiFENesin ER TAB 600 MG TAB PO SCH ×3 (06:34→21:13)
[2020-04-29] MEDS: IPRATROPIUM/ALBUTEROL 3 ML VIAL NEB SCH (08:00)
[2020-04-29] MEDS: tiZANidine 4 MG TAB PO PRN ×2 (08:49→20:16)
[2020-04-29] MEDS: TOPIRAMATE 25 MG TAB PO SCH ×2 (08:49→20:13)
[2020-04-29] MEDS: CLOPIDOGREL 75 MG TAB PO SCH (08:49)
[2020-04-29] MEDS: INSULIN LISPRO 100 UNITS/ML PEN SUBCU SCH ×4 (08:49→20:41)
[2020-04-29] MEDS: IBUPROFEN 400 MG TAB PO PRN (08:50)
[2020-04-29] MEDS: ASCORBIC ACID 500 MG TAB PO SCH ×2 (08:50→20:16)
[2020-04-29] MEDS: ZINC 50 MG CAPSULE PO SCH (08:50)
[2020-04-29] MEDS: PREGABALIN 100 MG CAP PO SCH ×2 (08:50→20:14)
[2020-04-29] MEDS: ENOXAPARIN SODIUM 80 MG/0.8 ML SYG SUBCU SCH ×3 (08:50→20:13)
[2020-04-29] MEDS: BIFIDOBACTERIUM INFANTIS 4 MG CAP PO SCH (08:50)
[2020-04-29] MEDS: CARVEDILOL 12.5 MG TAB PO SCH ×2 (08:51→20:15)
[2020-04-29] MEDS: NITROGLYCERIN 0.4 MG/HR PATCH TOP SCH (08:51)
[2020-04-29] MEDS: MESALAMINE 1.2 GM PO SCH ×3 (08:51→20:25)
[2020-04-29] MEDS ORDERED: LEVALBUTEROL NEBS 1.25 MG/3 ML VIAL NEB SCH (11:00)
[2020-04-29] MEDS: LEVALBUTEROL NEBS 1.25 MG/3 ML VIAL NEB SCH ×3 (12:00→20:45)
[2020-04-29] MEDS: TEMAZEPAM 15 MG CAP PO PRN (20:14)
[2020-04-29] MEDS: DULoxetine HCL 30 MG CAP PO SCH (20:15)
[2020-04-29] MEDS: MONTELUKAST 10 MG TAB PO SCH (20:16)
[2020-04-29] MEDS: SIMVASTATIN 10 MG TAB PO SCH (20:16)
[2020-04-29] MEDS: BENZONATATE PERLES 100 MG CAP PO PRN (20:17)
[2020-04-29] MEDS: DEXAMETHASONE INJ 4 MG/ML VIAL IV SCH (20:17)
[2020-04-29] MEDS: cefTRIAXone SODIUM 1 GM in SODIUM CHL 0.9% 50ML MIN-BAG+ 50 ML IVPB SCH (20:19)
[2020-04-29] MEDS: ONDANSETRON INJ 4 MG/2 ML VIAL IV PRN (20:32)
[2020-04-29] MEDS: INSULIN DETEMIR 100 UNITS/ML PEN SUBCU SCH (20:41)
[2020-04-29] MEDS: AZITHROMYCIN IV 500 MG in SODIUM CHLORIDE 0.9% 250ML 250 ML IVPB SCH (21:13)
--- NOTE | 2020-04-29 21:45 | PN ---
SUPERVISING PHYSICIAN: Milton Dawson M.D. DATE: 04/29/20 SUBJECTIVE: The patient has not had any more diarrhea. She reports that her breathing seems to be improved. Still has a little bit of shortness of breath on exertion but it is much less than it was when she came in. OBJECTIVE: VITAL SIGNS: Temperature 97.7, pulse 63, blood pressure 164/78, respirations 20, satting 97% on 2 liters nasal cannula. GENERAL: The patient is resting comfortably. Seems to be in good spirits. She is not in any distress. She is alert. CHEST: Sounds are fairly clear again, just a little diminished towards the bases. HEART: Regular rate and rhythm. ABDOMEN: Soft, non-tender. Positive bowel sounds. NEUROLOGIC: She is alert and oriented times three. LABORATORY: No additional laboratory studies other than blood sugars ranging between 136 and 167. MICROBIOLOGY: C-Difficile toxin A and B was good. Blood cultures remain negative after 5 days. RADIOLOGY: No additional radiographic studies today. ASSESSMENT: 1. COVID-19 pneumonitis. 2. Chronic obstructive pulmonary disease exacerbated by #1. 3. History of congestive heart failure with unknown etiology. No echocardiogram available at this time of review showing no signs of exacerbation. 4. Diarrhea likely associated with #1 with C-difficile being negative. 5. Type 2 diabetes mellitus. 6. Hypertension. 7. Hypothyroidism. 8. Gastroesophageal reflux disease. PLAN: Will continue current plan of care with azithromycin and Rocephin as she seems to be doing well. Will remain on Decadron and Lovenox 80 mg every 12 hours with the intention of probably going home on some Eliquis if needed. She does remain on sliding scale per protocol. She is on gastric protection with a proton pump inhibitor. Will continue with aggressive pulmonary hygiene and hopefully anticipate discharging on Thursday or Thursday. Until then will continue to monitor and treat as needed. [facility][id number] [facility]
[2020-04-30] MEDS: IBUPROFEN 400 MG TAB PO PRN (03:59)
[2020-04-30] MEDS: LEVOTHYROXINE SODIUM 0.075 MG TAB PO SCH (05:59)
[2020-04-30] MEDS: guaiFENesin ER TAB 600 MG TAB PO SCH (06:00)
--- NOTE | 2020-04-30 07:20 | RAD ---
EXAM: XR Chest, 1 View CLINICAL HISTORY: COVID PNA TECHNIQUE: Frontal view of the chest. COMPARISON: 04/26/2020. FINDINGS: Lungs: Stable diffuse bilateral interstitial and airspace consolidation relatively sparing the left upper lobe. Pleural space: Unremarkable. No pneumothorax. Heart: Stable prominent cardiac shadow. Mediastinum: Unremarkable. Bones/joints: Unremarkable. IMPRESSION: Stable abnormalities as above. Electronically signed by: Rama Montgomery MD 04/30/2020 7:18 AM CDT
[2020-04-30] MEDS: INSULIN LISPRO 100 UNITS/ML PEN SUBCU SCH ×2 (08:29→14:39)
[2020-04-30] MEDS: LEVALBUTEROL NEBS 1.25 MG/3 ML VIAL NEB SCH ×2 (09:10→13:08)
[2020-04-30] MEDS: PREGABALIN 100 MG CAP PO SCH (09:25)
[2020-04-30] MEDS: ZINC 50 MG CAPSULE PO SCH (09:26)
[2020-04-30] MEDS: TOPIRAMATE 25 MG TAB PO SCH (09:26)
[2020-04-30] MEDS: ASCORBIC ACID 500 MG TAB PO SCH (09:26)
[2020-04-30] MEDS: tiZANidine 4 MG TAB PO PRN (09:26)
[2020-04-30] MEDS: ENOXAPARIN SODIUM 80 MG/0.8 ML SYG SUBCU SCH (09:26)
[2020-04-30] MEDS: BIFIDOBACTERIUM INFANTIS 4 MG CAP PO SCH (09:26)
[2020-04-30] MEDS: CLOPIDOGREL 75 MG TAB PO SCH (09:26)
[2020-04-30] MEDS: CARVEDILOL 12.5 MG TAB PO SCH (09:26)
[2020-04-30] MEDS: NITROGLYCERIN 0.4 MG/HR PATCH TOP SCH (09:26)
[2020-04-30] MEDS: MESALAMINE 1.2 GM PO SCH (09:26)
[2020-04-30 16:52] VITALS: BP 145/78; TEMP 97.5; O2SAT 98
[2020-04-30] MEDS ORDERED: DEXAMETHASONE INJ 10 MG/ML VIAL IV SCH (21:00)
[2020-04-30] MEDS ORDERED: REMOVE OLD PATCH TOP SCH (21:00)
[2020-04-30] MEDS ORDERED: CARVEDILOL 3.125 MG TAB PO SCH (21:00)
--- NOTE | 2020-05-09 17:12 | DS ---
SUPERVISING PHYSICIAN: Meng Hudson M.D. ADMISSION DIAGNOSIS: 1. COVID-19 pneumonia. 2. Chronic obstructive pulmonary disease with exacerbation. 3. History of congestive heart failure with last echocardiogram unavailable and unknown ejection fraction and also unknown systolic or diastolic type. 4. Type 2 diabetes mellitus. 5. Hypertension. 6. Hypothyroidism. 7. Gastroesophageal reflux disease. DISCHARGE DIAGNOSIS: 1. COVID-19 pneumonitis. 2. Chronic obstructive pulmonary disease exacerbated by #1. 3. History of congestive heart failure with unknown etiology. No echocardiogram available at this time of review showing no signs of exacerbation. 4. Diarrhea likely associated with #1 with C-difficile being negative. 5. Type 2 diabetes mellitus. 6. Hypertension. 7. Hypothyroidism. 8. Gastroesophageal reflux disease. REASON FOR HOSPITALIZATION: This is a 74 year-old patient from the [facility] who has chronic obstructive pulmonary disease and continuing to complain of increasing shortness of breath and notably low oxygen saturations in the 87% range noted by EMS, as well as confusion. The patient became a little less confused with treatments in the Emergency Room, but was still confused initially about why she had come to the Emergency Room. She did say she had really been having a hard time breathing. Notably she had COVID-19 test done several days ago that returned positive last night. This long term has had a number of cases of COVID-19 over the past 2 weeks. The patient really has a hard time reporting to me when her symptoms began, but obviously they began at least several nights ago. She does have a chronic cough but has had slightly worse coughing recently. There have been no reports of fever or chills. She denies any chest pain, abdominal pain, nausea or vomiting. In the long term, her oxygen saturations were actually noted to be 77% on room air. EMS reported low 80s on room air which improved to 96% with 4 liters by nasal cannula. LABORATORY: White count at discharge was 7,400. She did have a slight left shift continued on discharge. Coagulation studies showed a PT of 35.7 with fibrinogen 829. Initial D-dimer was 2230, prior to discharge was down to 215. Chemistries on discharge show normal electrolytes with BUN 14. Blood sugars range between 148 and 157. Liver functions were all within normal limits. Calcium was normal at 8.5. Lactic acid on admission was 0.7. C reactive protein was 18.6 on admission, prior to discharge was 7.1. BNP on admission was normal at 35. Troponins 0.02 on admission. Urinalysis showed just 15 of ketones, otherwise within normal limits. She had a rapid Group A Strep that was negative. MICROBIOLOGY: C-Difficile toxin A and B were negative. Blood cultures remained negative after 5 days. RADIOLOGY: Chest x-ray in the Emergency Room initially per radiology interpretation showed an enlarged heart with marked pulmonary congestion increased. This was followed-up with a CT of the chest and per radiology interpretation showed no pulmonary embolus. There was noted commonly reported imaging features of (COVID-19 or viral) pneumonia and present. Please see that report for details. Final chest x-ray on discharge showed stable abnormalities which included stable diffuse bilateral interstitial and airspace consolidations relatively sparing the left upper lobe. EKG showed normal sinus rhythm with an incomplete right bundle branch block. No comparisons available for admission. No ST or T wave changes were noted. There was also note of a left anterior fascicular block. HOSPITAL COURSE: Ms. Neil was admitted from the Emergency Room for COVID pneumonia and treated as per protocol with Decadron, antibiotics, breathing treatments, Eliquis and closely monitored on labs. Her inflammatory markers were showing a good decrease and stabilization towards baseline levels. Her vital signs were showing stable. On the date of discharge she was maintaining O2 saturations of 90% on 2 liters nasal cannula. She was afebrile at 97.5 temperature, blood pressure 145/70, respirations 18. It was felt that she clinically improved well enough to continue with outpatient management. PLAN: Ms. Neil was discharged back to [facility] on 04/30/20 with instructions to followup with Dr. Roberson in 1 to 2 weeks, or sooner if needed. She was to resume all previous nursing orders and return to the E.D. as warranted. Medications on discharge besides regular medications prescribed included: 1. Eliquis 5 mg daily for a total of 30 days. 2. Align 4 mg daily, #30. No refills. 3. Cefdinir 300 mg twice daily, #10. 4. Dexamethasone 6 mg daily, #4. All other medications as noted were continued. Condition on discharge was stable and improved. DISPOSITION: The patient was discharged back to [facility]. [id number] [facility]
== END 2020-04-30 13:45 | DRG 177 ==
LOC: ER 15:24 → INTOOBSV 19:46 → UNDOADMOB 19:46 → OBSVTOIN 19:46 → MS 19:46 → INTOOBSV 04-25 21:59 → MS 04-25 21:59 → UNDOADMOB 04-25 21:59 → OBSVTOIN 04-25 21:59 → MS 04-25 22:47
PROVIDERS: ADMIT Family Medicine; ATTEND Nurse Practitioner Family
DX: U07.1 COVID-19 (principal); J12.89 Other viral pneumonia; J44.1 Chronic obstructive pulmonary disease with (acute) exacerbation; K51.90 Ulcerative colitis, unspecified, without complications; A08.39 Other viral enteritis; R09.02 Hypoxemia; I11.0 Hypertensive heart disease with heart failure; I50.9 Heart failure, unspecified; E11.40 Type 2 diabetes mellitus with diabetic neuropathy, unspecified; E03.9 Hypothyroidism, unspecified; K21.9 Gastro-esophageal reflux disease without esophagitis; I25.10 Atherosclerotic heart disease of native coronary artery without angina pectoris; E78.00 Pure hypercholesterolemia, unspecified; F03.90 Unspecified dementia, unspecified severity, without behavioral disturbance, psychotic disturbance, mood disturbance, and anxiety; F32.9 Major depressive disorder, single episode, unspecified; Z90.49 Acquired absence of other specified parts of digestive tract; Z91.040 Latex allergy status; Z88.0 Allergy status to penicillin; Z88.7 Allergy status to serum and vaccine; Z88.2 Allergy status to sulfonamides; Z79.82 Long term (current) use of aspirin; Z79.02 Long term (current) use of antithrombotics/antiplatelets; Z79.1 Long term (current) use of non-steroidal anti-inflammatories (NSAID); Z79.4 Long term (current) use of insulin; Z79.899 Other long term (current) drug therapy